=== PATIENT | female | born 1940 | race Caucasian/White ===

== ENCOUNTER 2017-03-06 09:09 | Outpatient (CLI) | payer MEDICARE ==
[2017-03-06 09:41] LABS: BILIRUBIN,URINE NEGATIVE (NEGATIVE)
[2017-03-06 09:44] LABS: UA CHARGE (STRIP ONLY) YES; UR CULTURE IF IND NOT INDICATED
[2017-03-06 09:48] LABS: BASOPHILS # (AUTO) 0.1 10^3/uL (0.0-0.1); BASOPHILS % (AUTO) 0.8 %; EOSINOPHILS # (AUTO) 0.3 10^3/uL (0.0-0.7); EOSINOPHILS % (AUTO) 3.7 %; HCT - HEMATOCRIT 36.9 % (37.0-47.0); HGB - HEMOGLOBIN 12.1 g/dL (12.0-16.0); LYMPHOCYTES # (AUTO) 1.9 10^3/uL (1.5-3.5); LYMPHOCYTES % (AUTO) 25.3 %; MEAN CORPUSCULAR HEMOGLOBIN 28.9 pg (27.0-31.0); MEAN CORPUSCULAR HGB CONC 32.9 g/dL (32.0-36.0); MEAN CORPUSCULAR VOLUME 87.8 fL (81.0-99.0); MONOCYTES # (AUTO) 0.7 10^3/uL (0.0-1.0); MONOCYTES % (AUTO) 9.7 %; NEUTROPHILS # (AUTO) 4.5 10^3/uL (1.5-6.6); NEUTROPHILS % (AUTO) 60.5 %; RED CELL DISTRIBUTION WIDTH 13.9 % (12.0-15.0); UNCORRECTED WHITE BLOOD COUNT 7.4 x10^3/uL; WHITE BLOOD COUNT 7.4 x10^3/uL (4.8-10.8)
[2017-03-06 09:58] LABS: HEMOGLOBIN A1C 0.72 g/dL
[2017-03-06 10:07] LABS: ALBUMIN/GLOBULIN RATIO 1.2 (1.0-2.2); BILIRUBIN,TOTAL 0.7 mg/dL (0.2-1.0); BUN - BLOOD UREA NITROGEN 12 mg/dL (6-20); CALCIUM 8.7 mg/dL (8.5-10.3); CARBON DIOXIDE - CO2 28 mmol/L (21-32); CHLORIDE 96 mmol/L (101-111); CHOL/HDL RATIO 3.4 (<4.4); CHOLESTEROL 178 mg/dL; CREATININE 0.7 mg/dL (0.4-1.0); GFR - MDRD 81 (>89); GLUCOSE 156 mg/dL (70-100); HDL CHOLESTEROL 53 mg/dL; LDL/HDL RATIO 1.8 (<4.4); POTASSIUM 3.7 mmol/L (3.5-5.0); SODIUM 133 mmol/L (135-145); TOTAL PROTEIN 6.5 g/dL (6.7-8.2); TRIGLYCERIDES 137 mg/dL; VLDL CHOLESTEROL 27 mg/dL
[2017-03-06 10:58] LABS: THYROID STIMULATING HORMONE 2.23 uIU/mL (0.34-5.60)
== END 2017-03-06 09:10 | disposition home or self-care (01) ==
LOC: LAB 09:09
PROVIDERS: ATTEND Internal Medicine
DX: Z79.899 Other long term (current) drug therapy (principal); M48.02 Spinal stenosis, cervical region; M25.519 Pain in unspecified shoulder; M54.6 Pain in thoracic spine; M54.9 Dorsalgia, unspecified; R06.00 Dyspnea, unspecified; M19.90 Unspecified osteoarthritis, unspecified site; C80.1 Malignant (primary) neoplasm, unspecified; I10 Essential (primary) hypertension; G64 Other disorders of peripheral nervous system; E78.5 Hyperlipidemia, unspecified; N19 Unspecified kidney failure; R60.9 Edema, unspecified; R06.09 Other forms of dyspnea
CPT/HCPCS: 36415; 80053; 80061; 81001; 81003; 82043; 82570; 82607; 83036; 83880; 84443; 85025; 87086

== ENCOUNTER 2017-06-05 09:58 | Outpatient (CLI) | payer MEDICARE ==
[2017-06-05 10:25] LABS: CALCIUM 8.9 mg/dL (8.5-10.3); CREATININE 0.7 mg/dL (0.4-1.0); POTASSIUM 4.3 mmol/L (3.5-5.0)
[2017-06-05 10:35] LABS: HEMOGLOBIN A1C 0.73 g/dL
== END 2017-06-05 09:59 | disposition home or self-care (01) ==
LOC: LAB 09:58
PROVIDERS: ATTEND Internal Medicine
DX: Z79.899 Other long term (current) drug therapy (principal); R20.0 Anesthesia of skin; E11.9 Type 2 diabetes mellitus without complications
CPT/HCPCS: 36415; 80048; 82607; 83036

== ENCOUNTER 2017-06-24 18:51 | Outpatient (CLI) | payer MEDICARE ==
[2017-06-25 15:46] LABS: TEST RESULT REPORT
== END 2017-06-24 18:52 | disposition home or self-care (01) ==
LOC: LAB.R 18:51
PROVIDERS: ATTEND Internal Medicine
DX: R19.7 Diarrhea, unspecified (principal)
CPT/HCPCS: 81599; 83630; 87045; 87046; 87077; 87177; 87209; 87329; 87493

== ENCOUNTER 2017-10-24 09:25 | Outpatient (CLI) | payer MEDICARE ==
[2017-10-24 09:52] LABS: BASOPHILS # (AUTO) 0.1 10^3/uL (0.0-0.1); BASOPHILS % (AUTO) 0.8 %; EOSINOPHILS # (AUTO) 0.3 10^3/uL (0.0-0.7); EOSINOPHILS % (AUTO) 2.6 %; HGB - HEMOGLOBIN 12.7 g/dL (12.0-16.0); LYMPHOCYTES # (AUTO) 2.2 10^3/uL (1.5-3.5); LYMPHOCYTES % (AUTO) 22.1 %; MEAN CORPUSCULAR HEMOGLOBIN 29.5 pg (27.0-31.0); MEAN CORPUSCULAR HGB CONC 34.1 g/dL (32.0-36.0); MEAN CORPUSCULAR VOLUME 86.4 fL (81.0-99.0); MEAN PLATELET VOLUME 8.8 fL (7.9-10.8); MONOCYTES # (AUTO) 0.9 10^3/uL (0.0-1.0); MONOCYTES % (AUTO) 8.9 %; NEUTROPHILS # (AUTO) 6.6 10^3/uL (1.5-6.6); NEUTROPHILS % (AUTO) 65.6 %; PLT - PLATELET COUNT 232 10^3/uL (130-450); RED BLOOD COUNT 4.31 10^6/uL (4.20-5.40); RED CELL DISTRIBUTION WIDTH 13.8 % (12.0-15.0); WHITE BLOOD COUNT 10.1 x10^3/uL (4.8-10.8)
[2017-10-24 10:03] LABS: ALBUMIN 3.9 g/dL (3.2-5.5); ALBUMIN/GLOBULIN RATIO 1.1 (1.0-2.2); BILIRUBIN,TOTAL 0.6 mg/dL (0.2-1.0); CALCIUM 8.8 mg/dL (8.5-10.3); CREATININE 0.7 mg/dL (0.4-1.0); TOTAL PROTEIN 7.3 g/dL (6.7-8.2)
[2017-10-24 10:51] LABS: HB2 TOTAL 13.9 g/dL; HEMOGLOBIN A1C 0.68 g/dL; HEMOGLOBIN A1C % 6.6 % (4.6-6.2)
[2017-10-24 11:12] LABS: BILIRUBIN,URINE NEGATIVE (NEGATIVE); CLARITY,URINE CLEAR (CLEAR); GLUCOSE, URINE (UA) NEGATIVE (NEGATIVE); KETONES,URINE (UA) NEGATIVE (NEGATIVE); LEUKOCYTE ESTERASE, URINE NEGATIVE (NEGATIVE); NITRITE,URINE NEGATIVE (NEGATIVE); OCCULT BLOOD,URINE NEGATIVE (NEGATIVE); PROTEIN,URINE NEGATIVE (NEGATIVE); UROBILINOGEN,URINE 0.2 (NORMAL) E.U./dL (NORMAL)
== END 2017-10-24 09:26 | disposition home or self-care (01) ==
LOC: LAB 09:25
PROVIDERS: ATTEND Internal Medicine
DX: R10.9 Unspecified abdominal pain (principal); R68.83 Chills (without fever); E11.9 Type 2 diabetes mellitus without complications; Z79.899 Other long term (current) drug therapy
CPT/HCPCS: 36415; 80053; 81001; 81003; 82150; 83036; 83690; 85025; 87086

== ENCOUNTER 2017-12-03 16:12 | Outpatient (CLI) | payer MEDICARE ==
--- NOTE | 2017-12-04 10:50 | XRAY Report ---
TWO VIEW CHEST: 12/03/2017 CLINICAL INDICATION: Cough, shortness of breath. FINDINGS: Frontal and lateral views of the chest are compared to previous films of 07/15/2016. The cardiac silhouette is mildly enlarged. Lung volumes are low, producing minimal basilar atelectasis. No focal infiltrate, effusion, or pneumothorax is seen. IMPRESSION: CARDIOMEGALY AND MINIMAL BASILAR ATELECTASIS. TD: 12/04/2017 10:49
== END 2017-12-03 16:13 | disposition home or self-care (01) ==
LOC: DI 16:12
PROVIDERS: ATTEND Internal Medicine
DX: J98.11 Atelectasis (principal); R05 Cough; I51.7 Cardiomegaly
CPT/HCPCS: 71046

== ENCOUNTER 2018-04-06 08:58 | Outpatient (CLI) | payer MEDICARE ==
[2018-04-06 09:33] LABS: BILIRUBIN,URINE NEGATIVE (NEGATIVE); GLUCOSE, URINE (UA) NEGATIVE (NEGATIVE); KETONES,URINE (UA) NEGATIVE (NEGATIVE); LEUKOCYTE ESTERASE, URINE NEGATIVE (NEGATIVE); NITRITE,URINE NEGATIVE (NEGATIVE); OCCULT BLOOD,URINE NEGATIVE (NEGATIVE); PROTEIN,URINE NEGATIVE (NEGATIVE); UROBILINOGEN,URINE 0.2 (NORMAL) E.U./dL (NORMAL)
[2018-04-06 09:35] LABS: BASOPHILS # (AUTO) 0.1 10^3/uL (0.0-0.1); EOSINOPHILS # (AUTO) 0.2 10^3/uL (0.0-0.7); EOSINOPHILS % (AUTO) 2.5 %; HGB - HEMOGLOBIN 12.6 g/dL (12.0-16.0); LYMPHOCYTES # (AUTO) 1.8 10^3/uL (1.5-3.5); LYMPHOCYTES % (AUTO) 23.8 %; MEAN CORPUSCULAR HEMOGLOBIN 29.4 pg (27.0-31.0); MEAN CORPUSCULAR HGB CONC 33.5 g/dL (32.0-36.0); MEAN CORPUSCULAR VOLUME 87.8 fL (81.0-99.0); MEAN PLATELET VOLUME 8.8 fL (7.9-10.8); MONOCYTES # (AUTO) 0.7 10^3/uL (0.0-1.0); MONOCYTES % (AUTO) 9.6 %; NEUTROPHILS # (AUTO) 4.7 10^3/uL (1.5-6.6); NEUTROPHILS % (AUTO) 63.1 %; PLT - PLATELET COUNT 242 10^3/uL (130-450); RED BLOOD COUNT 4.27 10^6/uL (4.20-5.40); RED CELL DISTRIBUTION WIDTH 14.7 % (12.0-15.0); WHITE BLOOD COUNT 7.4 x10^3/uL (4.8-10.8)
[2018-04-06 09:36] LABS: CLARITY,URINE CLEAR (CLEAR)
[2018-04-06 09:42] LABS: ALBUMIN 3.7 g/dL (3.2-5.5); ALBUMIN/GLOBULIN RATIO 1.1 (1.0-2.2); ALKALINE PHOSPHATASE 52 IU/L (42-121); ALT ALANINE AMINOTRANSFERASE 23 IU/L (10-60); AST ASPARTATE AMINOTRANSFERASE 23 IU/L (10-42); BILIRUBIN,TOTAL 0.9 mg/dL (0.2-1.0); BUN - BLOOD UREA NITROGEN 11 mg/dL (6-20); CALCIUM 8.9 mg/dL (8.5-10.3); CARBON DIOXIDE - CO2 30 mmol/L (21-32); CHLORIDE 95 mmol/L (101-111); CHOL/HDL RATIO 3.4 (<4.4); CHOLESTEROL 192 mg/dL; CREATININE 0.6 mg/dL (0.4-1.0); GFR - MDRD 96 (>89); GLUCOSE 154 mg/dL (70-100); HDL CHOLESTEROL 57 mg/dL; LDL CHOLESTEROL,CALCULATED 108 mg/dL; LDL/HDL RATIO 1.9 (<4.4); SODIUM 134 mmol/L (135-145); TOTAL PROTEIN 7.1 g/dL (6.7-8.2); VLDL CHOLESTEROL 27 mg/dL
[2018-04-06 09:55] LABS: CREATININE,URINE 34.8 mg/dL; MICROALBUM/CREATININE RATIO,UR 17.2 ug/mg (<30.0); MICROALBUMIN,URINE 0.6 mg/dL (0-300.0)
[2018-04-06 10:14] LABS: HB2 TOTAL 13.2 g/dL; HEMOGLOBIN A1C 0.74 g/dL; HEMOGLOBIN A1C % 7.3 % (4.6-6.2)
[2018-04-06 10:38] LABS: THYROID STIMULATING HORMONE 1.95 uIU/mL (0.34-5.60)
== END 2018-04-06 08:59 | disposition home or self-care (01) ==
LOC: LAB 08:58
PROVIDERS: ATTEND Internal Medicine
DX: Z79.899 Other long term (current) drug therapy (principal); I10 Essential (primary) hypertension; J30.2 Other seasonal allergic rhinitis; J45.909 Unspecified asthma, uncomplicated; K57.90 Diverticulosis of intestine, part unspecified, without perforation or abscess without bleeding; G64 Other disorders of peripheral nervous system; M19.90 Unspecified osteoarthritis, unspecified site; E78.5 Hyperlipidemia, unspecified; C80.1 Malignant (primary) neoplasm, unspecified
CPT/HCPCS: 36415; 80053; 80061; 81001; 81003; 82043; 82570; 82607; 83036; 83721; 84443; 85025; 87086

== ENCOUNTER 2018-04-10 15:16 | Outpatient (CLI) | payer MEDICARE ==
--- NOTE | 2018-04-11 16:44 | XRAY Report ---
Reason: HIP KNEE PAIN LEFT Procedure Date: 04/10/2018 Accession Number: [id number] / [id number] Procedure: XR - Hip w/Pelvis 2-3V LT CPT Code: FULL RESULT: EXAM: LEFT HIP AND PELVIS RADIOGRAPHY EXAM DATE: 04/10/2018 03:51 PM. HISTORY: Left hip pain. No known trauma. COMPARISONS: None. TECHNIQUE: 1 view of the pelvis and 1 view of the hip. FINDINGS: Bones: No fracture or bone lesion. Joints: The bilateral hip, pubis symphysis, and sacroiliac joints are preserved. Soft Tissues: No soft tissue swelling. IMPRESSION: Negative pelvis and hip radiography. RADIA
--- NOTE | 2018-04-11 16:45 | XRAY Report ---
Reason: HIP KNEE PAIN LEFT Procedure Date: 04/10/2018 Accession Number: [id number] / [id number] Procedure: XR - Knee 3 View LT CPT Code: FULL RESULT: EXAM: LEFT KNEE RADIOGRAPHY EXAM DATE: 04/10/2018 03:51 PM. CLINICAL HISTORY: Left knee pain and swelling. No known trauma. COMPARISON: None. TECHNIQUE: 3 views. FINDINGS: Bones: No fractures or bone lesions. Joints: No effusion. No subluxations. Soft Tissues: No soft tissue swelling. IMPRESSION: Negative knee radiography. RADIA
== END 2018-04-10 15:17 | disposition home or self-care (01) ==
LOC: DI 15:16
PROVIDERS: ATTEND Internal Medicine
DX: M25.552 Pain in left hip (principal); M25.562 Pain in left knee

== ENCOUNTER 2018-05-27 14:58 | Emergency (ER) | payer MEDICARE ==
--- NOTE | 2018-05-27 15:36 | XRAY Report ---
Reason: chest pain Procedure Date: 05/27/2018 Accession Number: [id number] / [id number] Procedure: XR - Chest 2 View X-Ray CPT Code: 17641 FULL RESULT: EXAM: CHEST RADIOGRAPHY EXAM DATE: 05/27/2018 03:23 PM. CLINICAL HISTORY: Chest pain. COMPARISON: CHEST 2 VIEW 12/03/2017 4:15 PM. TECHNIQUE: 2 views. FINDINGS: Lungs/Pleura: No focal opacities evident. No pleural effusion. No pneumothorax. Normal volumes. Mediastinum: Heart and mediastinal contours are unremarkable. Other: Again seen are degenerative changes of the right acromioclavicular joint with periosteal reaction involving the right acromion, these findings are not present on the left. IMPRESSION: No acute cardiopulmonary abnormality. Suspect posttraumatic findings in the right acromioclavicular joint region, which appears similar to the previous radiograph. Recommend dedicated shoulder views. RADIA
[2018-05-27 15:43] LABS: BASOPHILS # (AUTO) 0.1 10^3/uL (0.0-0.1); EOSINOPHILS # (AUTO) 0.1 10^3/uL (0.0-0.7); EOSINOPHILS % (AUTO) 1.8 %; HGB - HEMOGLOBIN 13.3 g/dL (12.0-16.0); LYMPHOCYTES % (AUTO) 26.6 %; MEAN CORPUSCULAR HEMOGLOBIN 30.5 pg (27.0-31.0); MEAN CORPUSCULAR HGB CONC 34.8 g/dL (32.0-36.0); MEAN CORPUSCULAR VOLUME 87.8 fL (81.0-99.0); MEAN PLATELET VOLUME 8.6 fL (7.9-10.8); MONOCYTES # (AUTO) 0.8 10^3/uL (0.0-1.0); MONOCYTES % (AUTO) 10.3 %; NEUTROPHILS # (AUTO) 4.5 10^3/uL (1.5-6.6); NEUTROPHILS % (AUTO) 60.3 %; PLT - PLATELET COUNT 245 10^3/uL (130-450); RED BLOOD COUNT 4.35 10^6/uL (4.20-5.40); RED CELL DISTRIBUTION WIDTH 14.1 % (12.0-15.0); WHITE BLOOD COUNT 7.4 x10^3/uL (4.8-10.8)
[2018-05-27 15:59] LABS: ALBUMIN 4.1 g/dL (3.2-5.5); ALBUMIN/GLOBULIN RATIO 1.2 (1.0-2.2); BILIRUBIN,TOTAL 0.4 mg/dL (0.2-1.0); CALCIUM 9.6 mg/dL (8.5-10.3); CREATININE 0.7 mg/dL (0.4-1.0); TOTAL PROTEIN 7.4 g/dL (6.7-8.2)
--- NOTE | 2018-05-27 16:22 | ED Physician Documentation ---
PD HPI CHEST PAIN - Stated complaint Stated Complaint: CP/SHOCK LIKE FEELING - Chief complaint Chief Complaint: Cardiac - History obtained from History obtained from: Patient - History of Present Illness Timing - onset: Other (She was having a shocklike sensation overnight and her chest. It started around 8 PM and lasted till 4 AM. It would last only a second at a time and she would feel a shock from the left chest over to the left axilla. It would happen every minute or 2 and then it petered out and the last one was at 4 AM and she has not had it since. There is no associated shortness of breath, nausea, dizziness. 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 HEENT: Cataracts - Present Medications Home Medications: Ambulatory Orders Medication Instructions Recorded Confirmed Aspirin [Aspir 81] 81 mg PO 11/03/13 08/21/15 Cetirizine HCl [Aller-Luanne] 10 mg PO 11/03/13 08/17/15 Chlorthalidone 25 mg PO 11/03/13 08/17/15 Cholecalciferol (Vitamin D3) 1,000 unit PO 11/03/13 08/21/15 [Vitamin D] Cyclobenzaprine [Flexeril] 10 mg PO PRN 11/03/13 08/17/15 Docusate Calcium [Dmitry-Tin] 240 mg PO 11/03/13 08/21/15 Gabapentin [Neurontin] 1,100 mg PO HS 11/03/13 08/21/15 Glucosamine Sulfate Dipot Chlr 1,000 mg PO DAILY 11/03/13 08/21/15 [Glucosamine] Ketotifen Fumarate [Zaditor] 5 ml OP PRN 11/03/13 08/21/15 amLODIPine [Norvasc] 1.5 tab PO DAILY 11/03/13 08/21/15 - Allergies Allergies/Adverse Reactions: Allergies Allergy/AdvReac Type Severity Reaction Status Date / Time acetaminophen [From Vicodin] Allergy Unknown Verified 05/27/18 15:04 hydrocodone bitartrate * Allergy Unknown Verified 05/27/18 15:04 [From Vicodin] hydromorphone HCl * Allergy Itching Verified 05/27/18 15:04 [From Dilaudid] meperidine HCl * Allergy Nausea Verified 05/27/18 15:04 [From Demerol] oxycodone HCl * Allergy Itching Verified 05/27/18 15:04 [From Percocet] prednisone Allergy Unknown Verified 08/17/15 12:57 rofecoxib [From Vioxx] Allergy Itching Verified 05/27/18 15:04 tramadol HCl * [From Ultram] Allergy Itching Verified 05/27/18 15:04 pectin Allergy Severe Respiratory Uncoded 05/27/18 15:04 PD ED PE NORMAL - Vitals Vital signs reviewed: Yes - General General: Alert and oriented X 3, No acute distress - Neck Neck: Supple, no meningeal sign, No bony TTP - Cardiac Cardiac: RRR, No murmur - Respiratory Respiratory: No respiratory distress, Clear bilaterally - Abdomen Abdomen: Non tender - Neuro Neuro: Alert and oriented X 3, Normal speech Results - Vitals Vitals: Vital Signs - 24 hr 05/27/18 15:01 Temperature 36.2 C L Heart Rate 113 H Respiratory 22 Rate Blood Pressure 158/99 H O2 Saturation 96 Oxygen O2 Source Room air - EKG (time done) 1511 Rate: Rate (enter#) (97) Rhythm: NSR [place]: Normal Intervals: Normal [place] QRS: Normal Ischemia: Normal ST segments Computer interpretation: Agree with computer - Labs Labs: Laboratory Tests 05/27/18 05/27/18 05/27/18 15:35 15:35 15:35 WBC 7.4 RBC 4.35 Hgb 13.3 Hct 38.2 MCV 87.8 MCH 30.5 MCHC 34.8 RDW 14.1 Plt Count 245 MPV 8.6 Neut # (Auto) 4.5 Lymph # (Auto) 2.0 Spink # (Auto) 0.8 Eos # (Auto) 0.1 Baso # (Auto) 0.1 Absolute Nucleated RBC 0.00 Nucleated RBC % 0.0 Sodium 134 L Potassium 3.5 Chloride 96 L Carbon Dioxide 31 Anion Gap 7.0 BUN 16 Creatinine 0.7 Estimated GFR (MDRD) 81 L Glucose 168 H Calcium 9.6 Total Bilirubin 0.4 AST 23 ALT 23 Alkaline Phosphatase 60 Troponin I < 0.04 Total Protein 7.4 Albumin 4.1 Globulin 3.3 Albumin/Globulin Ratio 1.2 Lipase 31 PD MEDICAL DECISION MAKING - ED course ED course: This is an 78-year-old woman with incredibly atypical and fleeting chest pains last night and has not had any in about 12 hours now with negative diagnostics. - Sepsis Event Vital Signs: Vital Signs - 24 hr 05/27/18 15:01 Temperature 36.2 C L Heart Rate 113 H Respiratory 22 Rate Blood Pressure 158/99 H O2 Saturation 96 Oxygen O2 Source Room air Departure - Departure Disposition: Home, Self Care Clinical Impression: Chest pain Qualifiers: Chest pain type: unspecified Qualified Code(s): R07.9 - Chest pain, unspecified Condition: Good Record reviewed to determine appropriate education?: Yes Instructions: ED Chest Pain NonCardiac Comments: Call your doctor to arrange a follow-up appointment, make the next available appointment. In the interim, return anytime if worse or if new symptoms develop. Your blood pressure was elevated today on check into the emergency department. This does not mean that you have hypertension, it is a common phenomenon to come to the emergency department and have elevated blood pressure. I recommend that you see your primary care physician within the week to have it rechecked when you are feeling better.
[2018-05-27 16:36] VITALS: BP 131/94
== END 2018-05-27 16:36 | disposition home or self-care (01) ==
LOC: ED 14:58
DX: R07.89 Other chest pain (principal); I10 Essential (primary) hypertension; E11.9 Type 2 diabetes mellitus without complications; Z79.82 Long term (current) use of aspirin
CPT/HCPCS: 36415; 71046; 80053; 83690; 84484; 85025; 93005; 99283

== ENCOUNTER 2019-01-08 08:40 | Outpatient (CLI) | payer MEDICARE ==
[2019-01-08 09:26] LABS: HB2 TOTAL 12.8 g/dL; HEMOGLOBIN A1C 0.68 g/dL
== END 2019-01-08 08:41 | disposition home or self-care (01) ==
LOC: LAB 08:40
PROVIDERS: ATTEND Internal Medicine
DX: E11.9 Type 2 diabetes mellitus without complications (principal)
CPT/HCPCS: 36415; 83036

== ENCOUNTER 2019-03-03 09:42 | Outpatient (CLI) | payer MEDICARE ==
[2019-03-03 10:15] LABS: BASOPHILS # (AUTO) 0.1 10^3/uL (0.0-0.1); BASOPHILS % (AUTO) 0.9 %; EOSINOPHILS # (AUTO) 0.2 10^3/uL (0.0-0.7); EOSINOPHILS % (AUTO) 2.2 %; HGB - HEMOGLOBIN 12.3 g/dL (12.0-16.0); LYMPHOCYTES # (AUTO) 1.6 10^3/uL (1.5-3.5); LYMPHOCYTES % (AUTO) 24.1 %; MEAN CORPUSCULAR HEMOGLOBIN 28.1 pg (27.0-31.0); MEAN CORPUSCULAR HGB CONC 31.2 g/dL (32.0-36.0); MEAN CORPUSCULAR VOLUME 90.2 fL (81.0-99.0); MEAN PLATELET VOLUME 10.1 fL (7.9-10.8); MONOCYTES # (AUTO) 0.6 10^3/uL (0.0-1.0); MONOCYTES % (AUTO) 9.1 %; NEUTROPHILS # (AUTO) 4.3 10^3/uL (1.5-6.6); NEUTROPHILS % (AUTO) 63.3 %; PLT - PLATELET COUNT 260 10^3/uL (130-450); RED BLOOD COUNT 4.37 10^6/uL (4.20-5.40); RED CELL DISTRIBUTION WIDTH 14.1 % (12.0-15.0); WHITE BLOOD COUNT 6.8 x10^3/uL (4.8-10.8)
[2019-03-03 10:28] LABS: BILIRUBIN,URINE NEGATIVE (NEGATIVE); GLUCOSE, URINE (UA) NEGATIVE (NEGATIVE); KETONES,URINE (UA) NEGATIVE (NEGATIVE); LEUKOCYTE ESTERASE, URINE NEGATIVE (NEGATIVE); NITRITE,URINE NEGATIVE (NEGATIVE); OCCULT BLOOD,URINE NEGATIVE (NEGATIVE); PH,URINE 7.5 PH (5.0-7.5); PROTEIN,URINE NEGATIVE (NEGATIVE); UROBILINOGEN,URINE 0.2 (NORMAL) E.U./dL (NORMAL)
[2019-03-03 10:30] LABS: CLARITY,URINE CLEAR (CLEAR)
[2019-03-03 10:44] LABS: MICROALBUM/CREATININE RATIO,UR 19.4 ug/mg (<30.0); MICROALBUMIN,URINE 1.2 mg/dL (0-300.0)
[2019-03-03 10:47] LABS: ALBUMIN 3.9 g/dL (3.2-5.5); ALBUMIN/GLOBULIN RATIO 1.2 (1.0-2.2); ALKALINE PHOSPHATASE 51 IU/L (42-121); ALT ALANINE AMINOTRANSFERASE 21 IU/L (10-60); AST ASPARTATE AMINOTRANSFERASE 21 IU/L (10-42); BILIRUBIN,TOTAL 0.6 mg/dL (0.2-1.0); BUN - BLOOD UREA NITROGEN 15 mg/dL (6-20); CALCIUM 9.2 mg/dL (8.5-10.3); CARBON DIOXIDE - CO2 29 mmol/L (21-32); CHLORIDE 96 mmol/L (101-111); CHOL/HDL RATIO 3.1 (<4.4); CHOLESTEROL 188 mg/dL; CREATININE 0.6 mg/dL (0.4-1.0); GFR - MDRD 96 (>89); GLUCOSE 152 mg/dL (70-100); HDL CHOLESTEROL 60 mg/dL; LDL CHOLESTEROL,CALCULATED 97 mg/dL; LDL/HDL RATIO 1.6 (<4.4); SODIUM 137 mmol/L (135-145); TOTAL PROTEIN 7.2 g/dL (6.7-8.2); VLDL CHOLESTEROL 31 mg/dL
[2019-03-03 11:22] LABS: THYROID STIMULATING HORMONE 2.18 uIU/mL (0.34-5.60)
[2019-03-05 07:16] LABS: HB2 TOTAL 13.3 g/dL; HEMOGLOBIN A1C 0.64 g/dL; HEMOGLOBIN A1C % 6.6 % (4.6-6.2)
== END 2019-03-03 09:43 | disposition home or self-care (01) ==
LOC: LAB 09:42
PROVIDERS: ATTEND Internal Medicine
DX: E78.5 Hyperlipidemia, unspecified (principal); E11.9 Type 2 diabetes mellitus without complications; I10 Essential (primary) hypertension; L29.9 Pruritus, unspecified; G62.9 Polyneuropathy, unspecified; R61 Generalized hyperhidrosis; Z13.6 Encounter for screening for cardiovascular disorders; Z79.899 Other long term (current) drug therapy
CPT/HCPCS: 36415; 80053; 80061; 81001; 81003; 82043; 82570; 82607; 83036; 83721; 84443; 85025; 87086

== ENCOUNTER 2019-09-17 09:45 | Outpatient (CLI) | payer MEDICARE ==
[2019-09-17 10:45] LABS: HB2 TOTAL 13.1 g/dL; HEMOGLOBIN A1C 0.73 g/dL; HEMOGLOBIN A1C % 7.3 % (4.6-6.2)
[2019-09-17 10:46] LABS: CALCIUM 8.8 mg/dL (8.5-10.3); CREATININE 0.7 mg/dL (0.4-1.0); MAGNESIUM 1.8 mg/dL (1.7-2.8)
== END 2019-09-17 09:46 | disposition home or self-care (01) ==
LOC: LAB 09:45
PROVIDERS: ATTEND Internal Medicine
DX: E11.9 Type 2 diabetes mellitus without complications (principal); Z79.899 Other long term (current) drug therapy; R20.0 Anesthesia of skin
CPT/HCPCS: 36415; 80048; 82607; 83036; 83735

== ENCOUNTER 2020-01-28 11:14 | Outpatient (CLI) | payer MEDICARE ==
[2020-01-28] MEDS ORDERED: IOVERSOL 320 50 ML VIAL ONE (11:43)
[2020-01-28] MEDS ORDERED: IOVERSOL 320 100 ML VIAL IVP ONE ×2 (11:43→14:51)
[2020-01-28 12:16] LABS: CREATININE 0.6 mg/dL (0.4-1.0)
--- NOTE | 2020-01-28 13:53 | CT Report ---
PROCEDURE: ABDOMEN W INDICATIONS: LEFT UPPER QUADRANT PAIN CONTRAST: IV CONTRAST: Optiray 320 ml: 100 PO CONTRAST: Optiray 320 ml50 TECHNIQUE: After the administration of oral and intravenous contrast, 5 mm thick sections acquired from the diap hragms to the iliac crests. 5 mm thick coronal and sagittal reformats were acquired. For radiation dose reduction, the following was used: automated exposure control, adjustment of mA and/or kV accor ding to patient size. COMPARISON: None. FINDINGS: Image quality: Excellent. Scattered subsegmental scarring/atelectasis. No acute consolidation. Solid organs: Spleen unremarkable. Hepatic steatosis. Gallbladder surgically absent. Biliary syste m is non dilated. Pancreas enhances normally. No adrenal nodules. Kidneys are normal in size, with out hydronephrosis. Bilateral renal cysts with simple appearance. Peritoneum and bowel: Contrast enhanced bowel loops appear normal in caliber. No free fluid or air. Nodes and vessels: No retroperitoneal or mesenteric adenopathy by size criteria. Aorta and inferior vena cava are normal in size. Bones: No suspicious bony lesions. Diffuse spondylosis and facet arthropathy. No vertebral body comp ression fractures. Miscellaneous: No ventral hernias. IMPRESSION: No specific visualized etiology for left-sided upper quadrant pain. No acute abnormality Colonic diverticulosis incidentally noted without evidence of acute inflammation. Hepatic steatosis Status post cholecystectomy Bilateral renal cysts with simple appearance. Reviewed by: Amadou Austin MD on 01/28/2020 1:51 PM PDT Approved by: Amadou Austin MD on 01/28/2020 1:51 PM PDT Station ID: [id number]
[2020-01-28] MEDS ORDERED: IOVERSOL 320 50 ML VIAL PO ONE (14:51)
== END 2020-01-28 11:15 | disposition home or self-care (01) ==
LOC: DI 11:14
PROVIDERS: ATTEND Internal Medicine
DX: R10.12 Left upper quadrant pain (principal); K76.0 Fatty (change of) liver, not elsewhere classified; Z90.49 Acquired absence of other specified parts of digestive tract; N28.1 Cyst of kidney, acquired; Z79.899 Other long term (current) drug therapy
CPT/HCPCS: 36415; 74160; 82565; Q9967

== ENCOUNTER 2020-02-15 10:22 | Outpatient (CLI) | payer MEDICARE ==
--- NOTE | 2020-02-15 11:52 | MRI Report ---
PROCEDURE: Lumbar Spine W/O INDICATIONS: LOW BACK PAIN TECHNIQUE: Noncontrast sagittal T1 spin echo and T2 fast echo, sagittal STIR, coronal T2, axial T1 and T2 fast s pin echo through the lumbar spine. COMPARISON: Lumbar spine MRI dated 05.19.13 FINDINGS: Image quality: Excellent. Alignment and Curvature: No plain films are available for comparison. Thus, for numbering purposes, 5 lumbar type vertebral bodies will be presumed for the current report. This should be confirmed with plain film correlation prior to any lumbar spinal intervention. There is loss of normal lumbar lordo sis. There is mild grade 1 retrolisthesis of L1 on L2, L2 on L3, L3 on L4, and L5 on S1. There is mod erate rightward curvature of the mid lumbar spine. Bone Marrow: Marrow is of normal overall signal. No acute vertebral body compression fractures. Th ere is moderate reactive signal within the endplates adjacent to the L1-L2, L2-L3, L3-L4, and L5-S1 i ntervertebral discs. Mild reactive signal within the endplates adjacent to the T10-T11, T11-T12, and L4-L5 intervertebral discs. L3-L5 laminectomy. Spinal Cord: Conus medullaris terminates at the T12-L1 disc space level. Visualized cord demonstrat es normal signal and size. Paraspinous Soft Tissues: No paravertebral masses. T12-L1: Mild disc height loss. Moderate disc desiccation. Mild diffuse disc bulge. Mild facet and li gament flavum hypertrophy. Mild canal stenosis. Mild bilateral foraminal stenosis. No change. L1-L2: Moderate disc height loss and desiccation. Moderate diffuse disc bulge. Mild facet and liga ment flavum hypertrophy. Mild canal stenosis. Mild bilateral foraminal stenosis. No change. L2-L3: Severe disc height loss and desiccation. Moderate diffuse disc bulge. Mild facet hypertroph y bilaterally. Moderate canal stenosis. Mild bilateral foraminal stenosis. No change. L3-L4: Moderate disc height loss and desiccation. Moderate diffuse disc bulge. Moderate facet hypertr ophy bilaterally. Moderate canal stenosis. Severe right and moderate left foraminal stenosis. Right L 3 nerve root compression. No change. L4-L5: Moderate disc height loss and desiccation. Mild diffuse disc bulge. Bilateral facet hypertro phy. Mild canal stenosis. Moderate subarticular foraminal stenosis bilaterally. No change. L5-S1: Severe disc height loss and desiccation. Moderate diffuse disc bulge. Moderate bilateral fac et hypertrophy. Mild ligament flavum hypertrophy. Moderate to severe canal stenosis. Moderate subarti cular foraminal stenosis bilaterally. No change. IMPRESSION: 1. Multilevel degenerative disc and facet disease, in addition to epidural lipomatosis and ligamentum flavum hypertrophy. 2. Postsurgical sequelae. 3. Multilevel canal stenoses, worst at L2-L3, L3-L4, and L5-S1 as described above. 4. Multilevel foraminal stenoses, worst on the right at L3-L4 where there is associated intraforamina l nerve root compression. Recommend correlation with clinical symptoms to ascertain relevance of this finding. 5. Five lumbar type vertebral bodies were presumed for the purposes of the current report. Correlati on with plainfilms for numbering purposes is recommended prior to any lumbar spinal intervention. Reviewed by: Satish Combs MD on 02/15/2020 11:50 AM PDT Approved by: Satish Combs MD on 02/15/2020 11:50 AM PDT Station ID: [id number]
== END 2020-02-15 10:23 | disposition home or self-care (01) ==
LOC: DI 10:22
PROVIDERS: ATTEND Internal Medicine
DX: M51.35 Other intervertebral disc degeneration, thoracolumbar region (principal); M51.36 Other intervertebral disc degeneration, lumbar region; M51.37 Other intervertebral disc degeneration, lumbosacral region; M48.05 Spinal stenosis, thoracolumbar region; M48.062 Spinal stenosis, lumbar region with neurogenic claudication; M48.07 Spinal stenosis, lumbosacral region; M47.815 Spondylosis without myelopathy or radiculopathy, thoracolumbar region; M47.816 Spondylosis without myelopathy or radiculopathy, lumbar region; M47.817 Spondylosis without myelopathy or radiculopathy, lumbosacral region; M43.16 Spondylolisthesis, lumbar region; M43.17 Spondylolisthesis, lumbosacral region; T88.9XXS Complication of surgical and medical care, unspecified, sequela
CPT/HCPCS: 72148

== ENCOUNTER 2020-04-19 09:26 | Outpatient (CLI) | payer MEDICARE ==
[2020-04-19 09:53] LABS: BASOPHILS # (AUTO) 0.1 10^3/uL (0.0-0.1); BASOPHILS % (AUTO) 0.9 %; EOSINOPHILS # (AUTO) 0.2 10^3/uL (0.0-0.7); EOSINOPHILS % (AUTO) 1.9 %; HGB - HEMOGLOBIN 12.6 g/dL (12.0-16.0); LYMPHOCYTES % (AUTO) 19.3 %; MEAN CORPUSCULAR HEMOGLOBIN 29.5 pg (27.0-31.0); MEAN CORPUSCULAR HGB CONC 32.1 g/dL (32.0-36.0); MEAN CORPUSCULAR VOLUME 91.8 fL (81.0-99.0); MEAN PLATELET VOLUME 9.7 fL (7.9-10.8); MONOCYTES # (AUTO) 0.9 10^3/uL (0.0-1.0); NEUTROPHILS % (AUTO) 68.1 %; PLT - PLATELET COUNT 273 10^3/uL (130-450); RED BLOOD COUNT 4.27 10^6/uL (4.20-5.40); WHITE BLOOD COUNT 10.3 x10^3/uL (4.8-10.8)
[2020-04-19 10:13] LABS: ALBUMIN 3.8 g/dL (3.2-5.5); ALBUMIN/GLOBULIN RATIO 1.2 (1.0-2.2); ALKALINE PHOSPHATASE 59 IU/L (42-121); ALT ALANINE AMINOTRANSFERASE 21 IU/L (10-60); AST ASPARTATE AMINOTRANSFERASE 18 IU/L (10-42); BILIRUBIN,TOTAL 0.8 mg/dL (0.2-1.0); BUN - BLOOD UREA NITROGEN 10 mg/dL (6-20); CARBON DIOXIDE - CO2 29 mmol/L (21-32); CHLORIDE 95 mmol/L (101-111); CHOL/HDL RATIO 2.9 (<4.4); CHOLESTEROL 200 mg/dL; CK- CREATINE KINASE 95 IU/L (22-269); CREATININE 0.7 mg/dL (0.4-1.0); GLUCOSE 159 mg/dL (70-100); HDL CHOLESTEROL 69 mg/dL; LDL CHOLESTEROL,CALCULATED 114 mg/dL; LDL/HDL RATIO 1.7 (<4.4); SODIUM 133 mmol/L (135-145); VLDL CHOLESTEROL 17 mg/dL
[2020-04-19 10:18] LABS: CREATININE,URINE 61.2 mg/dL; MICROALBUM/CREATININE RATIO,UR 21.2 ug/mg (<30.0); MICROALBUMIN,URINE 1.3 mg/dL (0-300.0)
[2020-04-19 11:26] LABS: HEMOGLOBIN A1c% 8.4 % (4.27-6.07)
== END 2020-04-19 09:27 | disposition home or self-care (01) ==
LOC: LAB 09:26
PROVIDERS: ATTEND Internal Medicine
DX: E11.9 Type 2 diabetes mellitus without complications (principal); I10 Essential (primary) hypertension; E78.5 Hyperlipidemia, unspecified; R25.2 Cramp and spasm; C50.919 Malignant neoplasm of unspecified site of unspecified female breast; G62.9 Polyneuropathy, unspecified; Z79.899 Other long term (current) drug therapy; Z13.0 Encounter for screening for diseases of the blood and blood-forming organs and certain disorders involving the immune mechanism; M46.1 Sacroiliitis, not elsewhere classified; M48.062 Spinal stenosis, lumbar region with neurogenic claudication
CPT/HCPCS: 36415; 80053; 80061; 82043; 82550; 82570; 83036; 83721; 83735; 84443; 85025

== ENCOUNTER 2020-06-26 19:46 | Outpatient (CLI) | payer MEDICARE | END 2020-06-26 19:47 | disposition EMS.NT | LOC: EMS 19:46 | PROVIDERS: ATTEND Surgery | DX: Z03.89 Encounter for observation for other suspected diseases and conditions ruled out (principal) ==

== ENCOUNTER 2020-07-11 12:46 | Outpatient (CLI) | payer MEDICARE | END 2020-07-11 12:47 | disposition home or self-care (01) | LOC: LAB 12:46 | PROVIDERS: ATTEND Psychiatry & Neurology Neurology | DX: Z53.9 Procedure and treatment not carried out, unspecified reason (principal) ==

== ENCOUNTER 2020-07-11 12:49 | Outpatient (CLI) | payer MEDICARE ==
[2020-07-11 13:47] LABS: FERRITIN 109.5 ng/mL (11.0-306.8)
== END 2020-07-11 12:50 | disposition home or self-care (01) ==
LOC: LAB 12:49
PROVIDERS: ATTEND Psychiatry & Neurology Neurology
DX: G62.9 Polyneuropathy, unspecified (principal); R25.2 Cramp and spasm
CPT/HCPCS: 36415; 82550; 82607; 82728; 83921; 86038

== ENCOUNTER 2020-08-30 13:18 | Outpatient (CLI) | payer MEDICARE ==
--- OUTSIDE RECORDS SUMMARY | 2020-08-30 13:21 | EXTERNAL MEDICAL SUMMARY RPT | Continuity of Care Document ---
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 Affiliation Unknown Race Unknown Ethnic Group Unknown Author Organization [facility] Address [address] [phone] Phone Care Team Providers Name Role Phone Dann[place]auer Unavailable Unavailable Miscellaneous Unavailable Unavailable Problems date description facility 2020-01-28 11:14 FATTY (CHANGE OF) LIVER, NOT [facility] ELSEWHERE CLASSIFIED 2020-01-28 11:14 CYST OF KIDNEY, ACQUIRED [facility] 2020-01-28 11:14 LEFT UPPER QUADRANT PAIN [facility] 2020-01-28 11:14 OTHER PRISON (CURRENT) DRUG [facility] 2020-01-28 11:14 ACQUIRED ABSENCE OF OTHER [facility] SPECIFIED PARTS OF DIGESTIVE TRACT 2020-04-19 09:26 MALIGNANT NEOPLASM OF UNSP SITE OF [facility] UNSPECIFIED FEMALE BREAST 2020-04-19 09:26 TYPE 2 DIABETES MELLITUS WITHOUT [facility] COMPLICATIONS 2020-04-19 09:26 HYPERLIPIDEMIA, UNSPECIFIED [facility] 2020-04-19 09:26 POLYNEUROPATHY, UNSPECIFIED [facility] 2020-04-19 09:26 ESSENTIAL (PRIMARY) HYPERTENSION [facility] 2020-04-19 09:26 SACROILIITIS, NOT ELSEWHERE [facility] CLASSIFIED 2020-04-19 09:26 SPINAL STENOSIS, LUMBAR REGION [facility] WITH NEUROGENIC CLAUDICATION 2020-04-19 09:26 CRAMP AND SPASM [facility] 2020-04-19 09:26 ENCNTR SCREEN FOR DIS OF THE [facility] BLD/BLD-FORM ORG/IMMUN MECHNSM 2020-04-19 09:26 OTHER PRISON (CURRENT) DRUG [facility]AP[facility] 2020-06-23 13:48 Encounter for screening for other [facility] viral diseases 2020-06-26 13:25 Essential (primary) hypertension [facility] 2020-06-26 13:25 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 2020-06-26 13:25 Other chest pain [facility] 2020-06-26 19:46 ENCNTR FOR OBS FOR OTH SUSPECTED [facility] DISEASES AND COND RULED OUT 2020-07-11 12:46 POLYNEUROPATHY, UNSPECIFIED [facility] 2020-07-11 12:46 CRAMP AND SPASM [facility] 2020-07-11 12:49 POLYNEUROPATHY, UNSPECIFIED [facility] 2020-07-11 12:49 CRAMP AND SPASM [facility] Allergies date description facility AZITHROMYCIN [facility] PENICILLINS [facility] SULFA ANTIBIOTICS [facility] pectin [facility] NO ALLERGY INFORMATION AVAILABLE [facility] meperidine HCl * [facility] hydromorphone HCl * [facility] hydrocodone bitartrate * [facility] oxycodone HCl * [facility] tramadol HCl * [facility] acetaminophen [facility] prednisone [facility] rofecoxib [facility] NO KNOWN ALLERGIES [facility] Procedures date description facility 2020-06-23 00:00:00 [facility] Results Social History date description facility [id number]
--- NOTE | 2020-08-30 23:49 | XRAY Report ---
PROCEDURE: Wrist 3 View RT INDICATIONS: wrist pain TECHNIQUE: 3 views of the wrist were acquired. COMPARISON: None FINDINGS: Bones: No fractures or dislocations. No suspicious bony lesions. Severe first CMC joint and triscap he joint osteoarthritis. Soft tissues: No suspicious soft tissue calcifications. IMPRESSION: Severe right first CMC joint and triscaphe joint arthritis. Reviewed by: Gena Forman MD, PhD on 08/30/2020 4:35 PM PST Approved by: Gena Forman MD, PhD on 08/30/2020 4:35 PM PST Station ID: [id number]
== END 2020-08-30 13:19 | disposition home or self-care (01) ==
LOC: DI 13:18
PROVIDERS: ATTEND Internal Medicine
DX: M19.031 Primary osteoarthritis, right wrist (principal)

== ENCOUNTER 2020-10-18 09:56 | Outpatient (CLI) | payer MEDICARE ==
[2020-10-18 10:54] LABS: CALCIUM 9.3 mg/dL (8.5-10.3); CREATININE 0.7 mg/dL (0.4-1.0); POTASSIUM 4.3 mmol/L (3.5-5.0)
[2020-10-18 12:44] LABS: ESTIMATED AVERAGE GLUCOSE 183 mg/dL (70-100)
== END 2020-10-18 09:57 | disposition home or self-care (01) ==
LOC: LAB 09:56
PROVIDERS: ATTEND Internal Medicine
DX: E11.9 Type 2 diabetes mellitus without complications (principal); Z79.899 Other long term (current) drug therapy
CPT/HCPCS: 36415; 80048; 83036

== ENCOUNTER 2021-04-11 10:29 | Outpatient (CLI) | payer MEDICARE ==
[2021-04-11 10:54] LABS: BASOPHILS # (AUTO) 0.1 10^3/uL (0.0-0.1); BASOPHILS % (AUTO) 0.8 %; EOSINOPHILS # (AUTO) 0.2 10^3/uL (0.0-0.7); HCT - HEMATOCRIT 39.2 % (37.0-47.0); HGB - HEMOGLOBIN 12.2 g/dL (12.0-16.0); MEAN CORPUSCULAR HEMOGLOBIN 28.4 pg (27.0-31.0); MEAN CORPUSCULAR HGB CONC 31.1 g/dL (32.0-36.0); MEAN CORPUSCULAR VOLUME 91.4 fL (81.0-99.0); MEAN PLATELET VOLUME 10.3 fL (7.9-10.8); MONOCYTES # (AUTO) 0.7 10^3/uL (0.0-1.0); MONOCYTES % (AUTO) 8.3 %; NEUTROPHILS # (AUTO) 5.4 10^3/uL (1.5-6.6); NEUTROPHILS % (AUTO) 64.5 %; PLT - PLATELET COUNT 285 10^3/uL (130-450); RED BLOOD COUNT 4.29 10^6/uL (4.20-5.40); WHITE BLOOD COUNT 8.3 x10^3/uL (4.8-10.8)
[2021-04-11 11:11] LABS: ALBUMIN/GLOBULIN RATIO 1.2 (1.0-2.2); ALKALINE PHOSPHATASE 56 IU/L (42-121); ALT ALANINE AMINOTRANSFERASE 21 IU/L (10-60); AST ASPARTATE AMINOTRANSFERASE 20 IU/L (10-42); BILIRUBIN,TOTAL 0.7 mg/dL (0.2-1.0); BUN - BLOOD UREA NITROGEN 11 mg/dL (6-20); CARBON DIOXIDE - CO2 28 mmol/L (21-32); CHLORIDE 93 mmol/L (101-111); CHOL/HDL RATIO 2.9 (<4.4); CHOLESTEROL 197 mg/dL; CREATININE 0.7 mg/dL (0.4-1.0); GFR - MDRD 80 (>89); GLUCOSE 188 mg/dL (70-100); HDL CHOLESTEROL 68 mg/dL; LDL CHOLESTEROL,CALCULATED 96 mg/dL; LDL/HDL RATIO 1.4 (<4.4); POTASSIUM 4.1 mmol/L (3.5-5.0); SODIUM 133 mmol/L (135-145); TOTAL PROTEIN 7.3 g/dL (6.7-8.2); TRIGLYCERIDES 164 mg/dL; VLDL CHOLESTEROL 33 mg/dL
[2021-04-11 11:24] LABS: THYROID STIMULATING HORMONE 2.01 uIU/mL (0.34-5.60)
[2021-04-11 11:36] LABS: CREATININE,URINE 37.5 mg/dL; MICROALBUM/CREATININE RATIO,UR 26.7 ug/mg (<30.0)
[2021-04-11 11:40] LABS: ESTIMATED AVERAGE GLUCOSE 200 mg/dL (70-100); HEMOGLOBIN A1c% 8.6 % (4.27-6.07)
== END 2021-04-11 10:30 | disposition home or self-care (01) ==
LOC: LAB 10:29
PROVIDERS: ATTEND Internal Medicine
DX: J45.909 Unspecified asthma, uncomplicated (principal); Z13.6 Encounter for screening for cardiovascular disorders; Z79.899 Other long term (current) drug therapy; I10 Essential (primary) hypertension; C44.92 Squamous cell carcinoma of skin, unspecified; C50.919 Malignant neoplasm of unspecified site of unspecified female breast; E11.9 Type 2 diabetes mellitus without complications; E78.5 Hyperlipidemia, unspecified; G64 Other disorders of peripheral nervous system; K76.0 Fatty (change of) liver, not elsewhere classified; M19.90 Unspecified osteoarthritis, unspecified site
CPT/HCPCS: 36415; 80053; 80061; 82043; 82306; 82570; 82607; 83036; 83721; 84443; 85025

== ENCOUNTER 2021-07-24 14:36 | Emergency (ER) | payer MEDICARE ==
[2021-07-24 15:17] VITALS: BP 159/74
--- NOTE | 2021-07-24 16:35 | ED Physician Documentation ---
History of Present Illness - Stated complaint Stated Complaint: FEELING STRANGE - Chief complaint Chief Complaint: General - History obtained from History obtained from: Patient - History of Present Illness Timing: Today Pain level max: 0 Pain level now: 0 - Additonal information Additional information: Patient is an 81-year-old female who states that intermittently over the past 9 months she has the sensation when she is sitting down that there is a fire coming out of her ears. She states that this last for 1 to 2 seconds. She also states that occasionally she will feel slightly lightheaded when this occurs. Does not last any longer than 1 to 2 seconds. She has seen her primary care provider, cardiology, ear nose and throat. She has had MRIs, echocardiograms, stress test, Holter monitor. No cause found for her symptoms. The symptoms recurred today, she contacted her doctor who recommended that she come here. The patient states she does not know what her doctor wanted done. Patient states that the symptoms only occur when sitting down and only occur in the morning. Review of Systems Ten Systems: 10 systems reviewed and negative Constitutional: denies: Fever, Chills Nose: denies: Rhinorrhea / runny nose, Congestion Respiratory: denies: Cough GI: denies: Nausea, Vomiting, Diarrhea Skin: denies: Rash Musculoskeletal: denies: Neck pain, Back pain Neurologic: denies: Headache PD PAST MEDICAL HISTORY - Past Medical History Cardiovascular: Hypertension, High cholesterol Respiratory: Asthma Endocrine/Autoimmune: Type 2 diabetes GI: Hemorrhoids HEENT: Chronic vision loss Psych: None Musculoskeletal: Osteoarthritis, Chronic back pain Derm: None - Past Surgical History General: Cholecystectomy, Colonoscopy 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 HEENT: Cataracts - Present Medications Home Medications: Ambulatory Orders Medication Instructions Recorded Confirmed Aspirin [Aspir 81] 81 mg PO 11/03/13 08/21/15 Cetirizine HCl [Aller-Luanne] 10 mg PO 11/03/13 08/17/15 Chlorthalidone 25 mg PO 11/03/13 08/17/15 Cholecalciferol (Vitamin D3) 1,000 unit PO 11/03/13 08/21/15 [Vitamin D] Cyclobenzaprine [Flexeril] 10 mg PO PRN 11/03/13 08/17/15 Docusate Calcium [Dmitry-Tin] 240 mg PO 11/03/13 08/21/15 Gabapentin [Neurontin] 1,100 mg PO HS 11/03/13 08/21/15 Glucosamine Sulfate Dipot Chlr 1,000 mg PO DAILY 11/03/13 08/21/15 [Glucosamine] Ketotifen Fumarate [Zaditor] 5 ml OP PRN 11/03/13 08/21/15 amLODIPine [Norvasc] 1.5 tab PO DAILY 11/03/13 08/21/15 - Allergies Allergies/Adverse Reactions: Allergies Allergy/AdvReac Type Severity Reaction Status Date / Time acetaminophen [From Vicodin] Allergy Unknown Verified 07/24/21 15:10 hydrocodone bitartrate * Allergy Unknown Verified 07/24/21 15:10 [From Vicodin] hydromorphone HCl * Allergy Itching Verified 07/24/21 15:10 [From Dilaudid] meperidine HCl * Allergy Nausea Verified 07/24/21 15:10 [From Demerol] oxycodone HCl * Allergy Itching Verified 07/24/21 15:10 [From Percocet] prednisone Allergy Unknown Verified 07/24/21 15:10 rofecoxib [From Vioxx] Allergy Itching Verified 07/24/21 15:10 tramadol HCl * [From Ultram] Allergy Itching Verified 07/24/21 15:10 pectin Allergy Severe Respiratory Uncoded 05/27/18 15:04 - Social History Does the pt smoke?: No Smoking Status: Never smoker Does the pt drink ETOH?: No Does the pt have substance abuse?: No - Immunizations Immunizations are current?: Yes PD ED PE NORMAL - Vitals Vital signs reviewed: Yes - General General: Alert and oriented X 3, No acute distress - HEENT HEENT: Moist mucous membranes - Neck Neck: Supple, no meningeal sign - Cardiac Cardiac: RRR, Strong equal pulses - Respiratory Respiratory: No respiratory distress, Clear bilaterally - Abdomen Abdomen: Soft, Non tender, Non distended - Derm Derm: Warm and dry - Neuro Neuro: Alert and oriented X 3 - Psych Psych: Normal mood, Normal affect Results - Vitals Vitals: Vital Signs - 24 hr 07/24/21 15:13 Temperature 36.7 C Heart Rate 100 Respiratory 16 Rate Blood Pressure 159/74 H O2 Saturation 97 Oxygen O2 Source Room air - EKG (time done) 1521 Rate: Rate (enter#) (95) Rhythm: NSR [place]: Normal Intervals: Prolonged PA QRS: Normal Ischemia: Normal ST segments PD MEDICAL DECISION MAKING - ED course Complexity details: reviewed results, re-evaluated patient, considered differential, d/w patient ED course: Patient is fully asymptomatic here. Normal EKG. Her PCP stated that the patient had said earlier today that she had chest pain and that was why she was sent to the emergency department. The patient adamantly denies having any chest pain. She states the pain was all in the ears. Patient is currently asymptomatic. No emergency medical condition at this time. This document was made in part using voice recognition software. While efforts are made to proofread this document, sound alike and grammatical errors may occur. Departure - Departure Disposition: 01 Home, Self Care Clinical Impression: Encounter for medical screening examination Condition: Good Instructions: ED Screening Exam Medical Nonurgent Follow-Up: Lorraine Pinzon MD [Primary Care Provider] - Within 1 week Comments: Please follow-up with your doctor for further care. Return if you worsen. Discharge Date/Time: 07/24/21 16:44
== END 2021-07-24 16:44 | disposition home or self-care (01) ==
LOC: ED 14:36
DX: Z00.00 Encounter for general adult medical examination without abnormal findings (principal); I10 Essential (primary) hypertension; E11.9 Type 2 diabetes mellitus without complications
CPT/HCPCS: 93005; 99281; 99283

== ENCOUNTER 2021-08-24 09:55 | Outpatient (CLI) | payer MEDICARE ==
[2021-08-24 13:07] LABS: ESTIMATED AVERAGE GLUCOSE 189 mg/dL (70-100); HEMOGLOBIN A1c% 8.2 % (4.27-6.07)
== END 2021-08-24 09:56 | disposition home or self-care (01) ==
LOC: LAB 09:55
PROVIDERS: ATTEND Internal Medicine
DX: E11.9 Type 2 diabetes mellitus without complications (principal)
CPT/HCPCS: 36415; 83036

== ENCOUNTER 2021-12-28 12:45 | Outpatient (CLI) | payer MEDICARE ==
--- NOTE | 2021-12-28 16:29 | XRAY Report ---
PROCEDURE: Hip w/Pelvis 2-3V LT INDICATIONS: LEFT HIP PAIN TECHNIQUE: AP pelvis with lateral view(s) of the left hip(s). COMPARISON: None. FINDINGS: Bones: No fractures or dislocations. Pelvic ring appears intact. No suspicious bony lesions. Mild osseous hypertrophy noted in the left hip compatible with mild osteoarthritis. Severe lower lumbar sp ine degenerative disc disease and facet arthropathy. Soft tissues: The visualized bowel gas pattern is normal. No suspicious soft tissue calcifications. IMPRESSION: Mild left hip osteoarthritis. Reviewed by: Gena Forman MD, PhD on 12/28/2021 4:28 PM PDT Approved by: Gena Forman MD, PhD on 12/28/2021 4:28 PM PDT Station ID: [id number]
== END 2021-12-28 12:46 | disposition home or self-care (01) ==
LOC: DI.S 12:45
PROVIDERS: ATTEND Internal Medicine
DX: M16.12 Unilateral primary osteoarthritis, left hip (principal)

== ENCOUNTER 2022-01-15 10:40 | Outpatient (CLI) | payer MEDICARE ==
[2022-01-15 12:48] LABS: ESTIMATED AVERAGE GLUCOSE 203 mg/dL (70-100); HEMOGLOBIN A1c% 8.7 % (4.27-6.07)
== END 2022-01-15 10:41 | disposition home or self-care (01) ==
LOC: LAB 10:40
PROVIDERS: ATTEND Internal Medicine
DX: E11.9 Type 2 diabetes mellitus without complications (principal)
CPT/HCPCS: 36415; 83036

== ENCOUNTER 2022-04-26 08:00 | Outpatient (CLI) | payer MEDICARE ==
[2022-04-26 16:15] LABS: BILIRUBIN,URINE NEGATIVE (NEGATIVE); GLUCOSE, URINE (UA) 250 mg/dL (NEGATIVE); KETONES,URINE (UA) NEGATIVE (NEGATIVE); LEUKOCYTE ESTERASE, URINE NEGATIVE (NEGATIVE); NITRITE,URINE NEGATIVE (NEGATIVE); OCCULT BLOOD,URINE NEGATIVE (NEGATIVE); PH,URINE 6.5 PH (5.0-7.5); PROTEIN,URINE NEGATIVE (NEGATIVE); UROBILINOGEN,URINE 0.2 (NORMAL) E.U./dL (NORMAL)
[2022-04-26 16:32] LABS: CLARITY,URINE CLEAR (CLEAR); RBC,URINE None Seen /HPF (0-5); SQUAMOUS EPITHELIAL CELL,UR RARE Squamous (<= Few); WBC,URINE 0-3 /HPF (0-5)
[2022-04-26 16:33] LABS: BACTERIA,URINE Rare /HPF (None Seen)
== END 2022-04-26 23:59 | disposition home or self-care (01) ==
LOC: LAB.R 08:00
PROVIDERS: ATTEND Internal Medicine
DX: R39.9 Unspecified symptoms and signs involving the genitourinary system (principal)
CPT/HCPCS: 81001; 87086

== ENCOUNTER 2022-05-23 10:08 | Outpatient (CLI) | payer MEDICARE ==
[2022-05-23 10:33] LABS: BASOPHILS # (AUTO) 0.1 10^3/uL (0.0-0.1); BASOPHILS % (AUTO) 0.7 %; EOSINOPHILS # (AUTO) 0.2 10^3/uL (0.0-0.7); EOSINOPHILS % (AUTO) 1.7 %; HCT - HEMATOCRIT 39.6 % (37.0-47.0); HGB - HEMOGLOBIN 12.8 g/dL (12.0-16.0); LYMPHOCYTES # (AUTO) 1.8 10^3/uL (1.5-3.5); LYMPHOCYTES % (AUTO) 20.9 %; MEAN CORPUSCULAR HEMOGLOBIN 28.9 pg (27.0-31.0); MEAN CORPUSCULAR HGB CONC 32.3 g/dL (32.0-36.0); MEAN CORPUSCULAR VOLUME 89.4 fL (81.0-99.0); MEAN PLATELET VOLUME 10.2 fL (7.9-10.8); MONOCYTES # (AUTO) 0.8 10^3/uL (0.0-1.0); MONOCYTES % (AUTO) 8.9 %; NEUTROPHILS # (AUTO) 5.8 10^3/uL (1.5-6.6); NEUTROPHILS % (AUTO) 67.3 %; PLT - PLATELET COUNT 293 10^3/uL (130-450); RED BLOOD COUNT 4.43 10^6/uL (4.20-5.40); RED CELL DISTRIBUTION WIDTH 13.5 % (12.0-15.0); WHITE BLOOD COUNT 8.7 x10^3/uL (4.8-10.8)
[2022-05-23 10:45] LABS: MICROALBUMIN,URINE 0.7 mg/dL (0-300.0)
[2022-05-23 10:52] LABS: ALBUMIN 3.7 g/dL (3.2-5.5); ALBUMIN/GLOBULIN RATIO 1.1 (1.0-2.2); ALKALINE PHOSPHATASE 59 IU/L (42-121); ALT ALANINE AMINOTRANSFERASE 22 IU/L (10-60); AST ASPARTATE AMINOTRANSFERASE 22 IU/L (10-42); BILIRUBIN,TOTAL 0.7 mg/dL (0.2-1.0); BUN - BLOOD UREA NITROGEN 11 mg/dL (6-20); CALCIUM 9.3 mg/dL (8.5-10.3); CARBON DIOXIDE - CO2 29 mmol/L (21-32); CHLORIDE 94 mmol/L (101-111); CHOL/HDL RATIO 2.9 (<4.4); CHOLESTEROL 179 mg/dL; CREATININE 0.6 mg/dL (0.4-1.0); GFR - MDRD 95 (>89); GLUCOSE 174 mg/dL (70-100); HDL CHOLESTEROL 62 mg/dL; LDL CHOLESTEROL,CALCULATED 93 mg/dL; LDL/HDL RATIO 1.5 (<4.4); POTASSIUM 4.2 mmol/L (3.5-5.0); SODIUM 131 mmol/L (135-145); TOTAL PROTEIN 7.2 g/dL (6.7-8.2); TRIGLYCERIDES 122 mg/dL; VLDL CHOLESTEROL 24 mg/dL
[2022-05-23 11:02] LABS: THYROID STIMULATING HORMONE 1.84 uIU/mL (0.34-5.60)
[2022-05-23 13:04] LABS: ESTIMATED AVERAGE GLUCOSE 200 mg/dL (70-100); HEMOGLOBIN A1c% 8.6 % (4.27-6.07)
== END 2022-05-23 10:09 | disposition home or self-care (01) ==
LOC: LAB 10:08
PROVIDERS: ATTEND Internal Medicine
DX: Z00.00 Encounter for general adult medical examination without abnormal findings (principal); E11.9 Type 2 diabetes mellitus without complications; K76.0 Fatty (change of) liver, not elsewhere classified; C50.919 Malignant neoplasm of unspecified site of unspecified female breast; E78.5 Hyperlipidemia, unspecified; I10 Essential (primary) hypertension; E87.1 Hypo-osmolality and hyponatremia; R25.2 Cramp and spasm; M54.2 Cervicalgia; M19.90 Unspecified osteoarthritis, unspecified site; G64 Other disorders of peripheral nervous system; R26.81 Unsteadiness on feet; J45.909 Unspecified asthma, uncomplicated; M25.519 Pain in unspecified shoulder; C80.1 Malignant (primary) neoplasm, unspecified; Z79.899 Other long term (current) drug therapy
CPT/HCPCS: 36415; 80053; 80061; 82043; 82570; 82607; 83036; 83721; 84443; 85025

== ENCOUNTER 2022-07-25 14:02 | Outpatient (CLI) | payer MEDICARE | END 2022-07-25 14:03 | disposition home or self-care (01) | LOC: LAB 14:02 | PROVIDERS: ATTEND Internal Medicine | DX: E11.9 Type 2 diabetes mellitus without complications (principal); J45.909 Unspecified asthma, uncomplicated; R05.1 Acute cough; R60.9 Edema, unspecified; R06.01 Orthopnea | CPT/HCPCS: 36415; 83880 ==

== ENCOUNTER 2022-10-04 16:20 | Outpatient (CLI) | payer MEDICARE ==
--- NOTE | 2022-10-04 16:57 | XRAY Report ---
PROCEDURE: Chest 2 View X-Ray INDICATIONS: ACUTE COUGH TECHNIQUE: 2 views of the chest were acquired. COMPARISON: Chest radiograph 05/27/2018. FINDINGS: Surgical changes and devices: None. Lungs and pleura: No pleural effusions or pneumothorax. Lungs are clear. Mediastinum: Mediastinal contours are normal. Heart size is normal. Bones and chest wall: No suspicious bony abnormalities. Soft tissues appear unremarkable. Degenerat aye changes are seen in the thoracic spine. IMPRESSION: No acute cardiopulmonary abnormality. Reviewed by: Jer Corea MD on 10/04/2022 4:56 PM PST Approved by: Jer Corea MD on 10/04/2022 4:56 PM [facility] Station ID: [id number]
== END 2022-10-04 16:21 | disposition home or self-care (01) ==
LOC: DI 16:20
PROVIDERS: ATTEND Internal Medicine
DX: R05.1 Acute cough (principal)

== ENCOUNTER 2022-10-28 15:08 | Outpatient (CLI) | payer MEDICARE ==
[2022-10-28 20:47] LABS: ESTIMATED AVERAGE GLUCOSE 197 mg/dL (70-100); HEMOGLOBIN A1c% 8.5 % (4.27-6.07)
== END 2022-10-28 15:09 | disposition home or self-care (01) ==
LOC: LAB 15:08
PROVIDERS: ATTEND Internal Medicine
DX: E11.9 Type 2 diabetes mellitus without complications (principal)
CPT/HCPCS: 36415; 83036

== ENCOUNTER 2022-12-02 17:17 | Outpatient (CLI) | payer MEDICARE ==
--- NOTE | 2022-12-04 11:31 | XRAY Report ---
PROCEDURE: Hip w/Pelvis 2-3V RT INDICATIONS: HIP PAIN TECHNIQUE: AP pelvis with lateral view(s) of the right hip(s). COMPARISON: X-ray lumbar spine, 02/15/2020. X-ray left hip, 12/28/2021. FINDINGS: Bones: No fractures or dislocations. Pelvic ring appears intact. No suspicious bony lesions. Mild- to-moderate degenerative joint disease in hips and sacroiliac joints bilaterally. Dwfcpabi-fc-[id number] degenerative disc and facet disease in lumbar spine. Soft tissues: The visualized bowel gas pattern is normal. No suspicious soft tissue calcifications. IMPRESSION: 1. No acute bony abnormality. 2. Bbxb-tx-hpyfzlab degenerative joint disease. 3. Degenerative changes in lumbar spine. Reviewed by: Mandy Segura MD on 12/04/2022 11:30 AM PDT Approved by: Mandy Segura MD on 12/04/2022 11:30 AM PDT Station ID: [id number]
== END 2022-12-02 17:18 | disposition home or self-care (01) ==
LOC: DI 17:17
PROVIDERS: ATTEND Internal Medicine
DX: M16.0 Bilateral primary osteoarthritis of hip (principal); M47.816 Spondylosis without myelopathy or radiculopathy, lumbar region

== ENCOUNTER 2023-04-03 10:56 | Outpatient (CLI) | payer MEDICARE ==
[2023-04-03 11:25] LABS: CALCIUM 9.8 mg/dL (8.5-10.3); CREATININE 0.9 mg/dL (0.6-1.3); POTASSIUM 4.3 mmol/L (3.5-4.5)
[2023-04-03 12:46] LABS: ESTIMATED AVERAGE GLUCOSE 197 mg/dL (70-100); HEMOGLOBIN A1c% 8.5 % (4.27-6.07)
== END 2023-04-03 10:57 | disposition home or self-care (01) ==
LOC: LAB 10:56
PROVIDERS: ATTEND Internal Medicine
DX: K59.00 Constipation, unspecified (principal); Z79.899 Other long term (current) drug therapy; R20.0 Anesthesia of skin; E11.9 Type 2 diabetes mellitus without complications; R26.81 Unsteadiness on feet
CPT/HCPCS: 36415; 80048; 82607; 83036

== ENCOUNTER 2023-05-16 15:43 | Outpatient (CLI) | payer MEDICARE ==
--- NOTE | 2023-05-16 23:14 | XRAY Report ---
PROCEDURE: Hand 3 View LT INDICATIONS: LACERATION W/O FOREIGN BODY OF LT HAND,HAND PX TECHNIQUE: 3 views of the hand(s) acquired. COMPARISON: None. FINDINGS: Bones: No fractures or dislocations. No suspicious bony lesions. Moderate first CMC joint degener ation. Mild scattered DIP and PIP joint degeneration. Soft tissues: No suspicious soft tissue calcifications or masses. No radiodensity seen within the soft tissues. IMPRESSION: No acute osseous abnormality. No radiographic evidence of foreign body. Moderate first CMC scattered mild DIP and PIP joint degeneration. Reviewed by: Katia Philippe MD on 05/16/2023 11:12 PM PDT Approved by: Katia Philippe MD on 05/16/2023 11:12 PM PDT Station ID: [id number]
== END 2023-05-16 15:44 | disposition home or self-care (01) ==
LOC: DI 15:43
PROVIDERS: ATTEND Physician Assistant
DX: S61.412A Laceration without foreign body of left hand, initial encounter (principal); M19.042 Primary osteoarthritis, left hand; M18.12 Unilateral primary osteoarthritis of first carpometacarpal joint, left hand

== ENCOUNTER 2023-06-24 10:12 | Outpatient (CLI) | payer MEDICARE ==
--- NOTE | 2023-06-24 16:19 | XRAY Report ---
PROCEDURE: Foot 3 View RT INDICATIONS: RT FOOT PAIN TECHNIQUE: 3 views of the foot were acquired. COMPARISON: None. FINDINGS: Bones: No fractures or dislocations. No suspicious bony lesions. Mild first MTP degenerative change . Soft tissues: No suspicious soft tissue calcifications or masses. IMPRESSION: No acute bony abnormality. Mild first MTP degenerative change. Reviewed by: Michael Larose MD on 06/24/2023 4:18 PM PST Approved by: Michael Larose MD on 06/24/2023 4:18 PM [facility] Station ID: [id number]
== END 2023-06-24 10:13 | disposition home or self-care (01) ==
LOC: DI 10:12
PROVIDERS: ATTEND Podiatrist
DX: M19.071 Primary osteoarthritis, right ankle and foot (principal)

== ENCOUNTER 2023-06-27 09:58 | Outpatient (CLI) | payer MEDICARE ==
[2023-06-27 10:14] LABS: BASOPHILS # (AUTO) 0.1 10^3/uL (0.0-0.1); BASOPHILS % (AUTO) 0.9 %; EOSINOPHILS # (AUTO) 0.2 10^3/uL (0.0-0.7); EOSINOPHILS % (AUTO) 2.6 %; HGB - HEMOGLOBIN 12.7 g/dL (12.0-16.0); LYMPHOCYTES # (AUTO) 2.1 10^3/uL (1.5-3.5); LYMPHOCYTES % (AUTO) 25.9 %; MEAN CORPUSCULAR HEMOGLOBIN 28.7 pg (27.0-31.0); MEAN CORPUSCULAR VOLUME 92.8 fL (81.0-99.0); MEAN PLATELET VOLUME 10.3 fL (7.9-10.8); MONOCYTES # (AUTO) 0.9 10^3/uL (0.0-1.0); MONOCYTES % (AUTO) 10.6 %; NEUTROPHILS # (AUTO) 4.8 10^3/uL (1.5-6.6); NEUTROPHILS % (AUTO) 59.6 %; PLT - PLATELET COUNT 239 10^3/uL (130-450); RED BLOOD COUNT 4.42 10^6/uL (4.20-5.40); RED CELL DISTRIBUTION WIDTH 13.8 % (12.0-15.0); WHITE BLOOD COUNT 8.1 x10^3/uL (4.8-10.8)
[2023-06-27 10:29] LABS: ALBUMIN 4.1 g/dL (3.2-5.5); ALBUMIN/GLOBULIN RATIO 1.4 (1.0-2.2); ALKALINE PHOSPHATASE 51 IU/L (42-121); ALT ALANINE AMINOTRANSFERASE 12 IU/L (10-60); AST ASPARTATE AMINOTRANSFERASE 13 IU/L (10-42); BILIRUBIN,TOTAL 0.5 mg/dL (0.2-1.0); BUN - BLOOD UREA NITROGEN 23 mg/dL (6-20); CALCIUM 9.4 mg/dL (8.5-10.3); CARBON DIOXIDE - CO2 33 mmol/L (21-32); CHLORIDE 100 mmol/L (101-111); CHOL/HDL RATIO 3.4 (<4.4); CHOLESTEROL 185 mg/dL; CREATININE 0.8 mg/dL (0.6-1.3); GFR - MDRD 68 (>89); GLUCOSE 175 mg/dL (74-104); HDL CHOLESTEROL 54 mg/dL; LDL CHOLESTEROL,CALCULATED 92 mg/dL; LDL/HDL RATIO 1.7 (<4.4); POTASSIUM 4.3 mmol/L (3.5-4.5); SODIUM 138 mmol/L (135-145); TRIGLYCERIDES 193 mg/dL (48-352); URIC ACID 5.9 mg/dL (2.3-6.6); VLDL CHOLESTEROL 39 mg/dL
[2023-06-27 10:42] LABS: MICROALBUM/CREATININE RATIO,UR 21.7 ug/mg (<30.0)
[2023-06-27 11:10] LABS: ESTIMATED AVERAGE GLUCOSE 197 mg/dL (70-100); HEMOGLOBIN A1c% 8.5 % (4.27-6.07)
== END 2023-06-27 09:59 | disposition home or self-care (01) ==
LOC: LAB 09:58
PROVIDERS: ATTEND Internal Medicine
DX: Z00.00 Encounter for general adult medical examination without abnormal findings (principal); M25.50 Pain in unspecified joint; E11.9 Type 2 diabetes mellitus without complications; K76.0 Fatty (change of) liver, not elsewhere classified; C50.919 Malignant neoplasm of unspecified site of unspecified female breast; H91.90 Unspecified hearing loss, unspecified ear; E78.5 Hyperlipidemia, unspecified; I10 Essential (primary) hypertension; J45.909 Unspecified asthma, uncomplicated; C80.1 Malignant (primary) neoplasm, unspecified; M48.00 Spinal stenosis, site unspecified; Z79.899 Other long term (current) drug therapy; G62.9 Polyneuropathy, unspecified
CPT/HCPCS: 36415; 80053; 80061; 82043; 82306; 82570; 82607; 83036; 83721; 84443; 84550; 85025

== ENCOUNTER 2023-06-30 15:21 | Outpatient (CLI) | payer MEDICARE ==
--- NOTE | 2023-07-01 00:26 | DEXA Report ---
PROCEDURE: Dexa Spine and/or Hip INDICATIONS: OSTEOARTHRITIS TECHNIQUE: Dual energy x-ray absorptiometry (DXA) was performed on a Cardize System. Regions measur ed are the AP Spine, femoral neck, and if needed forearm. COMPARISON: None FINDINGS: Lumbar Spine: Bone Mineral Density 1.695 g/cm/cm,T score 4.3. Normal Left Femoral Neck: Bone Mineral Density 1.095 g/cm/cm, T score 0.4. Normal Left Hip: Bone Mineral Density 1.123 g/cm/cm,T score 0.9. Normal (T score greater or equal to -1.0: NORMAL) (T score from -1.1 to -2.4: OSTEOPENIA) (T score less than or equal to -2.5 to: OSTEOPOROSIS) Impression: By WHO criteria, this patient has normal bone density. Patients with diagnosis of osteoporosis or osteopenia should have regular bone mineral density assess ment. For those eligible for Medicare, routine testing is allowed once every 2 years. Testing frequ ency can be increased for patients who have rapidly progressing disease or for those who are receivin g medical therapy to restore bone mass. Reviewed by: Asuncion Winters MD on 07/01/2023 12:25 AM PST Approved by: Asuncion Winters MD on 07/01/2023 12:25 AM PST Station ID: [id number]
== END 2023-06-30 15:22 | disposition home or self-care (01) ==
LOC: DI 15:21
PROVIDERS: ATTEND Internal Medicine
DX: M19.90 Unspecified osteoarthritis, unspecified site (principal)

== ENCOUNTER 2023-10-06 12:18 | Outpatient (CLI) | payer MEDICARE ==
--- NOTE | 2023-10-06 14:28 | XRAY Report ---
PROCEDURE: Foot 3+V BL (Weight Bearing) INDICATIONS: R FOOT SWELLING TECHNIQUE: 6 views of the bilateral feet, weightbearing COMPARISON: Right foot radiograph on June 24, 2023 FINDINGS: Bones: No fractures or dislocations. No suspicious bony lesions. Mild bilateral first MTP joint spa ce narrowing and juxta-articular osteophytosis. Soft tissues: No suspicious soft tissue calcifications or masses. Small Achilles calcaneal entheso phytes bilaterally. IMPRESSION: 1.No acute bony abnormality. 2.Mild first MTP joint osteoarthritis bilaterally. Reviewed by: Paul Alcocer MD on 10/06/2023 2:26 PM PST Approved by: Paul Alcocer MD on 10/06/2023 2:26 PM PST Station ID: [id number]
== END 2023-10-06 12:19 | disposition home or self-care (01) ==
LOC: DI 12:18
PROVIDERS: ATTEND Podiatrist
DX: M19.071 Primary osteoarthritis, right ankle and foot (principal)

== ENCOUNTER 2023-10-29 16:18 | Emergency (ER) | payer MEDICARE ==
[2023-10-29 16:54] VITALS: BP 144/73; O2SAT 93
--- NOTE | 2023-10-29 17:12 | ED Physician Documentation ---
PD HPI UPPER EXT INJURY - Stated complaint Stated Complaint: LT HAND LAC - Chief complaint Chief Complaint: Laceration - History obtained from History obtained from: Patient - Additonal information Additional information: She scratched the dorsum of her left hand with her fingernail just prior to arrival. She thinks her tetanus is up-to-date but the [place] tetanus registry says her last was in 1996. PD PAST MEDICAL HISTORY - Past Medical History Past Medical History: Yes Cardiovascular: Hypertension, High cholesterol Respiratory: Asthma Endocrine/Autoimmune: Type 2 diabetes GI: Hemorrhoids HEENT: Chronic vision loss Psych: None Musculoskeletal: Osteoarthritis, Chronic back pain Derm: None - Past Surgical History Past Surgical History: Yes General: Cholecystectomy, Colonoscopy Ortho: Other /[employer]: Mastectomy HEENT: Cataracts - Present Medications Home Medications: Ambulatory Orders Medication Instructions Recorded Confirmed Aspirin [Aspir 81] 81 mg PO 11/03/13 08/21/15 Cetirizine HCl [Aller-Luanne] 10 mg PO 11/03/13 08/17/15 Chlorthalidone 25 mg PO 11/03/13 08/17/15 Cholecalciferol (Vitamin D3) 1,000 unit PO 11/03/13 08/21/15 [Vitamin D] Cyclobenzaprine [Flexeril] 10 mg PO PRN 11/03/13 08/17/15 Docusate Calcium [Dmitry-Tin] 240 mg PO 11/03/13 08/21/15 Gabapentin [Neurontin] 1,100 mg PO HS 11/03/13 08/21/15 Glucosamine Sulfate Dipot Chlr 1,000 mg PO DAILY 11/03/13 08/21/15 [Glucosamine] Ketotifen Fumarate [Zaditor] 5 ml OP PRN 11/03/13 08/21/15 amLODIPine [Norvasc] 1.5 tab PO DAILY 11/03/13 08/21/15 - Allergies Allergies/Adverse Reactions: Allergies Allergy/AdvReac Type Severity Reaction Status Date / Time hydrocodone bitartrate * Allergy Unknown Verified 10/29/23 16:53 [From Vicodin] hydromorphone HCl * Allergy Itching Verified 10/29/23 16:53 [From Dilaudid] meperidine HCl * Allergy Nausea Verified 10/29/23 16:53 [From Demerol] oxycodone HCl * Allergy Itching Verified 10/29/23 16:53 [From Percocet] prednisone Allergy Unknown Verified 10/29/23 16:53 rofecoxib [From Vioxx] Allergy Itching Verified 10/29/23 16:53 tramadol HCl * [From Ultram] Allergy Itching Verified 10/29/23 16:53 pectin Allergy Severe Respiratory Uncoded 10/29/23 16:53 - Social History Does the pt smoke?: No Smoking Status: Never smoker Does the pt drink ETOH?: No Does the pt have substance abuse?: No - Immunizations Immunizations are current?: No PD ED PE NORMAL - Vitals Vital signs reviewed: Yes - General General: Alert and oriented X 3 - Extremities Extremities: Other (She has a curved 1.5 cm very shallow laceration on the dorsum of the left hand without active bleeding.) - Neuro Neuro: Alert and oriented X 3 Results - Vitals Vitals: Vital Signs - 24 hr 10/29/23 16:47 Temperature 36.5 C Heart Rate 86 Respiratory 18 Rate Blood Pressure 144/73 H O2 Saturation 93 Oxygen O2 Source Room air Procedures - Laceration (location) Left hand Length in cm: 1.5 Wound type: Curved, Superficial Wound preparation: Irrigated copiously NS Skin layer closure: Dermabond Other: Tetanus booster given Departure - Departure Disposition: 01 Home, Self Care Clinical Impression: Laceration Condition: Good Record reviewed to determine appropriate education?: Yes Instructions: ED Laceration Ext Skin Glue Forms: PCP List
[2023-10-29] MEDS: TETANUS/DIPHTHERIA/PERTUSSIS 0.5 ML SYRINGE IM ONE (17:20)
== END 2023-10-29 17:28 | disposition home or self-care (01) ==
LOC: ED 16:18
DX: S61.412A Laceration without foreign body of left hand, initial encounter (principal); W50.4XXA Accidental scratch by another person, initial encounter; I10 Essential (primary) hypertension; E78.00 Pure hypercholesterolemia, unspecified; E11.9 Type 2 diabetes mellitus without complications; Z23 Encounter for immunization; Z79.82 Long term (current) use of aspirin; Z79.899 Other long term (current) drug therapy
CPT/HCPCS: 12001; 90471; 99283

== ENCOUNTER 2024-02-24 11:01 | Outpatient (CLI) | payer MEDICARE ==
[2024-02-24 13:18] LABS: ESTIMATED AVERAGE GLUCOSE 197 mg/dL (70-100); HEMOGLOBIN A1c% 8.5 % (4.27-6.07)
== END 2024-02-24 11:02 | disposition home or self-care (01) ==
LOC: LAB 11:01
PROVIDERS: ATTEND Internal Medicine
DX: E11.9 Type 2 diabetes mellitus without complications (principal); R26.89 Other abnormalities of gait and mobility
CPT/HCPCS: 36415; 82607; 83036

== ENCOUNTER 2024-04-06 12:55 | Outpatient (CLI) | payer MEDICARE ==
--- NOTE | 2024-04-07 12:59 | Ultrasound Report ---
PROCEDURE: Extremity Soft Tissue Limited INDICATIONS: LT THIGH SINGLE LUMP, FATIGUE TECHNIQUE: Real-time scanning was performed of the lateral left thigh, with image documentation. COMPARISON: None. FINDINGS: No significant sonographic abnormality is seen at the site of the patient indicated palpab le abnormality. IMPRESSION: No significant sonographic abnormality. Reviewed by: Jer Corea MD on 04/07/2024 12:57 PM PDT Approved by: Jer Corea MD on 04/07/2024 12:57 PM PDT Station ID: [id number]
== END 2024-04-06 12:56 | disposition home or self-care (01) ==
LOC: DI 12:55
PROVIDERS: ATTEND Internal Medicine
DX: R22.42 Localized swelling, mass and lump, left lower limb (principal); R53.83 Other fatigue; R00.1 Bradycardia, unspecified